=== PATIENT | male | born 1955 | race Caucasian/White ===

== ENCOUNTER 2017-08-13 01:38 | Inpatient (IN) | payer OTHER, MEDICARE ==
[~2017-08-13] VITALS: Ht 172.7 cm; Wt 99.8 kg
[~2017-08-13 01:38] MED LIST: LISINOPRIL10 M1 PO; LISINOPRIL40 M1 PO; METFORMIN HCL500 M3 PO; METFORMIN HCL500 M4 PO; VITAMIN B COMP1 EACH PO
--- NOTE | 2017-08-13 10:34 | Operative Report ---
Operative/Inv Procedure Report Surgery Date: 08/13/17 Name of Procedure: 1.C3-6 laminectomy 2. 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 Operative/Procedure Note Note: Patient was taken the operating room. After appropriate patient identification and surgical timeout, the patient had neurophysiologic monitoring leads placed and baseline recordings were obtained. He then underwent the smooth induction of general endotracheal anesthesia without incident with the neck in a neutral position. Monitoring was stable. A Cortes catheter was sterilely inserted. DVT prophylaxis was utilized throughout the case. Patient was given 2 g of IV Kefzol and preoperative prophylaxis. With all tubes and lines secured in the blood pressure well controlled, the patient was placed in the Spencer 3 point head fixation device was applied and carefully turned to the prone position on gel rolls taking care to ensure that all pressure points were well-padded. The neck was maintained in a neutral to slightly lordotic position and fixed to the table. Monitoring was stable with the patient to the prone position. Shoulders were retracted downward with tape. The posterior neck was widely prepped and draped in usual sterile fashion using povidone iodine solution. A vertical midline skin incision was marked from C3- C7 and infiltrated with 10 mL of local anesthetic. Skin incision was made with a 10 blade knife. Dissection was carried down through the subcutaneous tissue with the Bovie the ligamentum nuchae a. Ligament was incised in the midline and a subperiosteal dissection of the cervical paravertebral muscles was performed bilaterally with the Bovie exposing underlying spinous processes lamina and facet joints bilaterally. We extended the exposure to the lateral aspect of the lateral masses from C3 to C7 bilaterally and self-retaining retractors were placed beneath the muscle. A [place] 4 elevator was placed in the presumed C4/5 facet joint and a lateral cervical x-ray was obtained and confirmed this to be the correct level. With the levels verified, we proceeded to drilling the lateral masses and decoritcating the facet joints with the drill prior to screw insertion. Entry points for the lateral mass screws were selected from C3 to C6 bilaterally, medial to the midpoint of the lateral mass and marked with a latasha bur. Screw holes were then drilled using the [place] to a depth of 12 mm and with a 30 lateral and rostral angulation. All holes were palpated with a ball-tipped probe and showed no evidence of cortical breakthrough. The holes were sounded with a ball-tipped probe and showed no evidence of cortical breakthrough. A laminectomy of C3, C4, C5, and C6 was performed using combination of the bone scalpel and [place] rongeurs. Bone was passed off to the back table and saved for arthrodesis. Hemostasis was obtained with irrigation and flowseal in the lateral epidural gutters. The facet joints of C3 4, C4 5, C5 6 were packed with morcellated autograft packed bilaterally as well as over the dorsal aspect of the lateral masses which were also decorticated. We then placed a 3.5 x 12 mm screws bilaterally from C3 to C6 without complication. 60 mm titanium rods were then gently lordosed and top loaded into the screws bilaterally. Locking caps were placed. Screws were then finally tightened with an antitorque device. Meticulous hemostasis was achieved using combination of bipolar and Surgifoam. Neurophysiologic monitoring was noted to be stable following the decompression and placement of the instrumentation. The wound was copiously irrigated with sterile saline irrigation. A medium LISETTE drain was placed into the wound and secured to the skin with a 2-0 nylon suture. We then began wound closure. Deep muscle was reapproximated with interrupted 0 Vicryl suture. The ligamentum nuchae was reapproximated with interrupted 0 Vicryl suture and the subcutaneous tissue was irrigated and closed in layers with a 2-0 Vicryl suture. The skin was closed with eleazar. The wound was cleaned and dried. Bacitracin and a sterile occlusive dressing was placed. Placed in a hard cervical collar, taken out of the Sneed and returned to the supine position. He was taken out of the Spencer, awakened, extubated, and taken to PACU in stable condition. He was noted to be moving all 4 extremities at the completion of the case. All sponge, needle, and instrument counts were correct at the completion of the procedure 3. Neurophysiologic monitoring was stable. Findings: tight stenosis with facet and ligamentum flavum hypertrophy Discharge Disposition: PACU
--- NOTE | 2017-08-13 10:40 | Operative Report ---
Operative/Inv Procedure Report Surgery Date: 08/13/17 Name of Procedure: C3 through 6 laminectomy C3 through 6 lateral mass fusion autograft [place] lateral mass screws Pre-Operative Diagnosis: Spondylosis with myelopathy Post-Operative Diagnosis: Same Estimated Blood Loss: 150 Surgeon/Telecommunications Linesworker: Blake Ang MD,Kayleen Gay Anesthesia: general endotracheal tube Operative/Procedure Note Note: After successful administration of general endotracheal anesthesia all lines tubes and monitors were placed by anesthesia team the patient was placed in Sneed head fixation with prone on longitudinal gel rolls with all pressure points padded. The patient see to to C7 patient prepped and draped in standard fashion 10 mL of lidocaine with epinephrine was infiltrated in the subcutaneous tissues were 10 blade was used to incise the skin this was deepened with Bovie cautery to the deep cervical fascia. This was divided in avascular midline plane was dissected down to the spinous process of C3 4 5 6, a subperiosteal dissection was carried out exposing the lateral masses of the aforementioned levels self retaining retractors were inserted. We brought x-ray and confirm level after levels confirmed we used a high-speed drill to drill forestry pilot holes in the position of the lateral mass at C3 4 5 and 6 were deepened with a 12 mm drill and tapped with a tap to 10 mm all holes at circumfrencial bone. We then used the bone scalpel to make cuts in the lamina of C3 4 5 and 6 the spinal ligament complex was removed en bloc to the back table morselized for autograft we then placed 12 mm screws at C3 4 5 6 decorticated the lateral masses and facet complex packed with morselized autograft a 60 mm chito was contoured to shape and secured in place with the blockers tightened with a torque limiting xm1 tank driver. Motors and sensors were stable fluoroscope to bacitracin irrigation was to minimum he was table by pressure cautery FloSeal and Gelfoam the thecal sac was pulsatile evidence for CSF leak. The retractors removed through separate stab incision was 10 LISETTE drain was placed subfascially was closed in layers using 0 interrupted Vicryls for the muscle fascia 2-0 Vicryl deep dermis and skin was closed eleazar dry sterile dressing applied and the case all needle counts sponge and instruments were correct. A hard collar was placed the patient which he was taken to recovery in stable condition.
--- NOTE | 2017-08-13 12:30 | RADIOLOGY REPORT ---
EXAMINATION: CR CERVICAL SPINE CLINICAL INDICATION: Posterior cervical fusion C3 - C6 in OR. COMPARISON: None TECHNIQUE/FINDINGS: Single lateral view of the cervical spine was performed portably in the operating room. A surgical marker is seen projected posterior to the C4-C5 disc space. IMPRESSION: Localization of the posterior C4-C5 disc space.
[2017-08-13 12:55] VITALS: BP 144/87
--- NOTE | 2017-08-13 16:43 | PN- Neurosurgical ---
Subjective Subjective: POC feeling well, walked with pt- likely home tomorrow. mild hip pain now. hungry. no n/v/cp/sob. +void Objective Vital Signs and I&Os Vital Signs Date Time Temp Pulse Resp B/P B/P Pulse O2 O2 Flow FiO2 Mean Ox Delivery Rate 08/13 1709 98.0 86 20 154/85 97 08/13 1255 97.9 81 18 144/87 Intake & Output 08/13 0808/13 0000 08/12 1600 08/12 0808/12 0000 Intake Total Output Total Balance Patient 224 lb Weight Physical Exam: gen- nad neck- collar in place. dressing w scant serosang staining. TARAN to self suction, about 30cc serosang in bulb card-s1s2 rrr pulm-ctab abd- soft nt ext- gross sensation intact bue, auto air conditioning mechanic 5/5 bl, arm raise weaker on right, calves soft nt bl, gross motor/sensate intact bl Current Medications: Current Medications Sig/Karri Start time Last Medication Dose Route Stop Time Status Admin Acetaminophen 1,000 MG Q6H 08/13 1500 AC N/A 1 UNIT IV 08/14 0914 Acetaminophen 650 MG Q4P PRN 08/13 1115 DC PO Bisacodyl 10 MG DAILY NEEDED PRN 08/13 1115 AC CO Bupivacaine Liposome 266 MG .STK-MED ONE 08/13 0949 DC INF 08/13 0950 Cefazolin Sodium 2 GM IQ8 08/13 1600 AC 08/13 N/A 1 UNIT IV 08/14 1559 1712 Diazepam 5 MG Q8P PRN 08/13 1115 AC PO Docusate Sodium 100 MG BID 08/13 1130 AC 08/13 PO 1714 Famotidine 20 MG BID 08/13 1130 AC 08/13 PO 1714 Fentanyl Citrate 250 MCG .STK-MED ONE 08/13 0702 DC IM 08/13 0703 Heparin Sodium 5,000 UNIT Q8 08/14 0600 AC (Porcine) SC Lisinopril 40 MG DAILY 08/14 1000 AC PO Metformin HCl 500 MG 0800,1700 08/13 1700 AC 08/13 PO 1712 Midazolam HCl 2 MG .STK-MED ONE 08/13 0704 DC IM 08/13 0705 Morphine Sulfate 2 MG EVERY 5 MIN PRN 08/13 1545 DC IV Morphine Sulfate 2 MG Q10MIN PRN 08/13 1545 DC IV Morphine Sulfate 2 MG Q15 PRN 08/13 1545 DC IV Morphine Sulfate 2 MG Q2P PRN 08/13 1215 AC IV Ondansetron HCl 4 MG Q6P PRN 08/13 1115 AC IV Oxycodone HCl 5 MG Q4P PRN 08/13 1215 AC PO Oxycodone HCl 10 MG Q4P PRN 08/13 1215 AC PO Oxycodone/ 2 TAB Q4P PRN 08/13 1115 DC Acetaminophen PO Remifentanil 2 MG .STK-MED ONE 08/13 0725 DC IV 08/13 0726 Remifentanil 2 MG .STK-MED ONE 08/13 0703 DC IV 08/13 0704 Sodium Chloride 1,000 ML Q10H 08/13 1115 AC 08/13 IV 08/14 0714 1716 Assessment/Plan Assessment/Plan A- POD0 sp c3-6 lami/fusion, stable with mild rue weakness and tingling, likely postop effects, will closely monitor. P- reg diet as tolerated prn pain meds hl in am i&os home meds oob as tolerated, pt eval in am taran to self suction cervical collar at all times dsg change pod2 am labs hepsq in am no toradol dc planning will dw attending Core Measures Venous Thromboembolism VTE Risk Factors Surgery No Mechanical VTE Prophylaxis d/t N/A MechProphylax Ordered No VTE Pharm Prophylaxis d/t NA PharmProphylax ordered
[2017-08-13 17:09] VITALS: BP 154/85
--- NOTE | 2017-08-13 17:33 | Admission Core Measures ---
Acute Coronary Syndrome (CM) ACS Core Measures Acute Coronary Syndrome Diagnosis No Congestive Heart Failure (NEW) CHF Core Measures Congestive Heart Failure Diagnosis No Cerebrovascular Accident (NEW) CVA Core Measures CVA/TIA Diagnosis No Venous Thromboembolism VTE Core Fermin (View Protocol) VTE Risk Factors Surgery No Mechanical VTE Prophylaxis d/t N/A MechProphylax Ordered No VTE Pharm Prophylaxis d/t NA PharmProphylax ordered Problem List As ranked by this Provider includes Assessment & Plan 1. Cervical stenosis of spine HOME MEDS Home Med List Lisinopril 40 MG TABLET 1 TAB PO DAILY BP (Reported) Metformin HCl (Metformin HCl ER) 500 MG TAB.ER.24H 2 TAB PO DAILY DM ( Reported)
[2017-08-13 19:02] VITALS: BP 139/71
[2017-08-13 23:00] VITALS: BP 121/72
[2017-08-14 02:19] VITALS: BP 166/88
[2017-08-14 06:27] VITALS: BP 148/86
--- NOTE | 2017-08-14 07:49 | PN- Neurosurgical ---
Subjective Subjective: Pt doing well. Reports incisional post neck pain and weakness right shoulder this am. Objective Vital Signs and I&Os Vital Signs Date Time Temp Pulse Resp B/P B/P Pulse O2 O2 Flow FiO2 Mean Ox Delivery Rate 08/14 626 98.1 73 20 148/86 95 Room Air 08/14 0219 98.3 88 20 166/88 97 Room Air 08/13 2300 98.6 77 20 121/72 94 08/13 1938 Room Air Room Air 08/13 1902 98.2 75 20 139/71 95 / 1709 98.0 86 20 154/85 97 08/13 1255 97.9 81 18 144/87 Intake & Output 08/14 0808/14 0000 08/13 1600 08/13 0808/13 0000 08/12 1600 Intake Total 1280 900 Output Total 600 520 600 Balance -600 760 300 Intake, IV 800 100 Intake, Oral 480 800 Output, 20 100 Drainage Output, Urine 600 500 500 Patient 101.264 kg 100.726 kg 100.698 kg 101.605 kg Weight Weight Bed scale Bed scale Measurement Method Physical Exam: Pt awake and alert, sitting upright in bed AF, VSS Incision c,d,i flat, LISETTE with 130cc last 2 shfts combined per nursing serosanguinous motor exam with weakness right deltoid, partially pain limited but good power remainder RUE, normal motor LUE sensory with min hypesthesia right thumb, index otherwise intact using IS to 3L, darling dinner last night voiding on own Current Medications: Current Medications Sig/Karri Start time Last Medication Dose Route Stop Time Status Admin Acetaminophen 1,000 MG Q6H 08/13 1500 AC 08/14 N/A 1 UNIT IV 08/14 0914 0301 Acetaminophen 650 MG Q4P PRN 08/13 1115 DC PO Bisacodyl 10 MG DAILY NEEDED PRN 08/13 1115 AC SD Bupivacaine Liposome 266 MG .STK-MED ONE 08/13 0949 DC INF 08/13 0950 Cefazolin Sodium 2 GM IQ8 08/13 1600 AC 08/14 N/A 1 UNIT IV 08/17 1559 0000 Diazepam 5 MG Q8P PRN 08/13 1115 AC 08/14 PO 0555 Docusate Sodium 100 MG BID 08/13 1130 AC 08/13 PO 2150 Famotidine 20 MG BID 08/13 1130 AC 08/13 PO 2150 Heparin Sodium 5,000 UNIT Q8 08/14 0600 AC 08/14 (Porcine) SC 0539 Hydralazine HCl 20 MG .STK-MED ONE 08/13 1053 DC IM 08/13 1054 Insulin Aspart 0 TIDAC 08/14 0800 AC SC Insulin Aspart 0 AT BEDTIME 08/13 2200 AC SC Lisinopril 40 MG DAILY 08/14 1000 AC PO Metformin HCl 500 MG 0800,1700 08/13 1700 DC 08/13 PO 1712 Morphine Sulfate 2 MG EVERY 5 MIN PRN 08/13 1545 DC IV Morphine Sulfate 2 MG Q10MIN PRN 08/13 1545 DC IV Morphine Sulfate 2 MG Q15 PRN 08/13 1545 DC IV Morphine Sulfate 2 MG Q2P PRN 08/13 1215 AC IV Morphine Sulfate 10 MG .STK-MED ONE 08/13 1118 DC IV 08/13 1119 Ondansetron HCl 4 MG Q6P PRN 08/13 1115 AC IV Oxycodone HCl 5 MG Q4P PRN 08/13 1215 AC PO Oxycodone HCl 10 MG Q4P PRN 08/13 1215 AC PO Oxycodone/ 2 TAB Q4P PRN 08/13 1115 DC Acetaminophen PO Sodium Chloride 1,000 ML Q10H 08/13 1115 DC 08/13 IV 08/14 0714 2146 Assessment/Plan Assessment/Plan Pt POD1 s/p C3-6 lami and fusion with weakness of right deltoid c/w mild postop C5 root palsy, otherwise neuro intact. Plan: -steroid taper -GI prophylaxis -PT/OT -OOB today, use IS 10x/hr -cont LISETTE today, cont abx until drain out -DVT prophylaxis -alternate po percocet and valium today for pain control, cont tylenol atc Core Measures Venous Thromboembolism VTE Risk Factors Surgery No Mechanical VTE Prophylaxis d/t N/A MechProphylax Ordered No VTE Pharm Prophylaxis d/t NA PharmProphylax ordered
[2017-08-14 11:37] VITALS: BP 164/85
[2017-08-14 13:43] VITALS: BP 158/60
[2017-08-14 22:06] VITALS: BP 150/86
[2017-08-15 06:39] VITALS: BP 170/92
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
[2017-08-15 08:55] VITALS: BP 150/80
[2017-08-15 14:43] VITALS: BP 150/82
[2017-08-15 22:07] VITALS: BP 138/78
[2017-08-16 06:29] VITALS: BP 154/88
[2017-08-16 08:01] VITALS: BP 154/88
[2017-08-16] MEDS ORDERED: VALIUM5 M2 PO (08:21)
[2017-08-16] MEDS ORDERED: PERCOCET 5-3251 EACH PO (08:21)
[2017-08-16] MEDS ORDERED: COLACE100 M1 PO (13:23)
[2017-08-16] MEDS ORDERED: MIRALAX17 G1 PO (13:23)
--- NOTE | 2017-08-16 13:24 | Patient Discharge Instructions ---
Discharge Instructions General Discharge Information You were seen/treated for: Cervical spine stenosis You had these procedures: C3-6 laminectomy C3-6 fusion with lateral mass screws, autograft Watch for these problems: Increased temp>101, increase redness or drainage of wound, increased weakness or decreased sensation Call Surgeon to remove: [place] No bath, but you may shower: Yes Other wound care: Keep incision clean and dry. Place a tegaderm over the incision while showering. Diet Continue normal diet: Yes Activity Activity Self Limited: Yes Pounds, do NOT lift more than: 5 Acute Coronary Syndrome Inclusion Criteria At DC or during hospital stay patient has or had the following: ACS DIAGNOSIS No Discharge Core Measures Meds if any: Prescribed or Continued at Discharge Meds if any: NOT Prescribed or Continued at Discharge Congestive Heart Failure Inclusion Criteria At DC or during hospital stay patient has or had the following: CHF DIAGNOSIS No Discharge Core Measures Meds if any: Prescribed or Continued at Discharge Meds if any: NOT Prescribed or Continued at Discharge Cerebrovascular accident Inclusion Criteria At DC or during hospital stay patient has or had the following: CVA/TIA Diagnosis No Discharge Core Measures Meds if any: Prescribed or Continued at Discharge Meds if any: NOT Prescribed or Continued at Discharge Venous thromboembolism Inclusion Criteria VTE Diagnosis No VTE Type NONE VTE Confirmed by (Test) NONE Discharge Core Measures - Per Current guidelines, there needs to be overlap - treatment for the first 5 days of Warfarin therapy. - If discharged on Warfarin prior to 5 days of - overlap therapy, the patient will need to be - assessed for post discharge needs including - *Post discharge parental anticoagulation - *Warfarin and/or parental anticoagulation education - *Follow up date to check INR post discharge At least 5 days overlap therapy as Inpatient No Meds if any: Prescribed or Continued at Discharge Note: Overlap Therapy is Warfarin and Anticoagulant Meds if any: NOT Prescribed or Continued at Discharge
--- NOTE | 2017-08-16 13:35 | PN- Neurosurgical ---
Subjective Subjective: OOB in chair No complaints this morning Tolerating diet, no nausea Pain is well controlled with medication C collar is on while sitting up - he feels comfortable in it Objective Vital Signs and I&Os Vital Signs Date Time Temp Pulse Resp B/P B/P Pulse O2 O2 Flow FiO2 Mean Ox Delivery Rate 08/16 800 97.4 65 20 154/88 03/08 0629 97.4 65 20 154/88 97 Room Air 08/15 2207 98.2 76 20 138/78 98 Room Air 08/15 1443 98.2 78 20 150/82 95 Intake & Output 08/16 1600 08/16 0800 08/16 0000 08/15 1600 08/15 0800 08/15 0000 Intake Total 699 159 1494 200 800 Output Total 850 610 20 Balance -761 728 9698 -410 780 Intake, IV 50 Intake, Oral 480 800 980 200 800 Number 1 0 0 Bowel Movements Output, 10 20 Drainage Output, Urine 850 600 Patient 220 lb 220 lb Weight Weight Bed scale Bed scale Measurement Method Physical Exam: AF, VSS General: alert and oriented times three Chest: clear anteriorly bilaterally, RRR Abd: soft, good bs Ext: RUE - strength 4/5 right deltoid - he can elevate his arm overhead. 5/5 ONIEL elsewhere BUE no edema, normosensate Wd: dressing changed with patients daughter who will be managing it at home. Incision is clean and dry. [place] intact, no drainage or erythema Assessment/Plan Assessment/Plan 62yo male pod 3 s/p lami/fusion with some post op c5 palsy which has improved Per Dr Sav aguilar home after [employer] rep provides inserts for the C Collar - they are en route to the hospital now Percocet/valium ordered for home colace/miralax as needed Instructions given regarding dressings/wound care etc Core Measures Venous Thromboembolism VTE Risk Factors Surgery No Mechanical VTE Prophylaxis d/t N/A MechProphylax Ordered No VTE Pharm Prophylaxis d/t NA PharmProphylax ordered
--- NOTE | 2017-08-16 13:43 | Surgical Discharge Summary ---
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 He was noted to have some mild post op C5 root palsy on post op day 1. Other than his deltoid weakness, his motorneuro exam was normal post op. He had two taran drains which were removed on 08/15. His antibiotics were also discontinued on that day. His pain was well managed on oral narcotics. On 08/16 he was out of bed, ambulating without difficulty with a rolling walker, his pain was well controlled, he was tolerating a regular diet and voiding spontaneously. He was deemed stable for discharge home. His dressing was changed and his incision looked good. His daughter was instructed on home dressing changes. Allergies: Coded Allergies: Sulfa (Sulfonamide Antibiotics) (ANAPHYLAXIS 07/26/17) Disposition Summary Disposition Principal Diagnosis: C Spine stenosis Additional Diagnosis: htn, dm Discharge Disposition: home or self care Discharge Instructions General Discharge Information Code Status: Full Code Patient's Diet: regular Patient's Activity: WBAT, no lifting >5 pounds, no bending, twisting, pulling. C Collar on at all times while sitting up or out of bed. Follow-Up Instructions/Appts: Call Dr Wise office for a follow up visit within one week. Medications at Discharge Discharge Medications: Continue taking these medications: Lisinopril (Lisinopril) 40 MG TABLET 1 Tablet ORAL DAILY Metformin HCl (Metformin HCl ER) 500 MG TAB.ER.24H 2 Tablet ORAL DAILY Qty = 30 Start taking the following new medications: Oxycodone HCl/Acetaminophen (Percocet 5-325 MG Tablet) 5 MG-325 MG TABLET 1-2 Tablet ORAL EVERY 4-6 HOURS as needed for PAIN Qty = 50 No Refills Diazepam (Valium) 5 MG TABLET 1 Tablet ORAL EVERY 8 HOURS as needed for SPASM Qty = 40 No Refills Docusate Sodium (Colace) 100 MG CAPSULE 1 Capsule ORAL TWICE DAILY Qty = 1 No Refills Polyethylene Glycol 3350 (Miralax) 17 GRAM POWD.PACK 1 Packet ORAL DAILY Qty = 1 No Refills Instructions: dissolve in water Copies To: Sav DICKERSON,Kayleen Gay
[2017-08-16] MEDS ORDERED: DEXAMETHASONE1 M1 PO (15:56)
== END 2017-08-16 17:02 | disposition home health service (06) | DRG 472 ==
LOC: SDA 01:38 → 2NA 01:38 → ENRESERV 11:47 → ENTRNSPT 12:18 → EDTRNSPTSTS 12:32 → EDTRNSPT 12:32 → 2NA 12:44 → CMPTRNSPT 12:48 → 2NA 20:34 → ENPENDDIS 08-16 13:36 → ENTRNSPT 08-16 16:47 → EDTRNSPTSTS 08-16 16:57 → 2NA 08-16 17:02 → CMPTRNSPT 08-16 17:14
PROC: 00NW0ZZ Release Cervical Spinal Cord, Open Approach (ICD-10-PCS; principal; 2017-08-13)
PROC: 0RG2071 Fusion of 2 or more Cervical Vertebral Joints with Autologous Tissue Substitute, Posterior Approach, Posterior Column, Open Approach (ICD-10-PCS; 2017-08-13)
DX: M48.02 Spinal stenosis, cervical region (principal); M47.12 Other spondylosis with myelopathy, cervical region; G58.8 Other specified mononeuropathies; E11.9 Type 2 diabetes mellitus without complications; I10 Essential (primary) hypertension; G43.909 Migraine, unspecified, not intractable, without status migrainosus; E78.1 Pure hyperglyceridemia; K21.9 Gastro-esophageal reflux disease without esophagitis; M19.90 Unspecified osteoarthritis, unspecified site
CPT/HCPCS: 2NASP; 36415; 72020; 87086; 97116-GO; 97161-GP; 97165-GO; C1713; C9290; C9399; J0131; J0360; J0690; J1644; J2405; J3370